=== PATIENT | female | born 1965 ===

== ENCOUNTER 2018-08-08 10:31 | Outpatient (CLI) | payer OTHER | END 2018-08-08 10:34 | disposition home or self-care (01) | LOC: MAMO-SONO 10:31 | DX: N60.11 Diffuse cystic mastopathy of right breast (principal); Z12.31 Encounter for screening mammogram for malignant neoplasm of breast ==

== ENCOUNTER 2018-10-25 14:32 | Outpatient (CLI) | payer OTHER | END 2018-10-25 14:41 | disposition home or self-care (01) | LOC: SONOGRAMA 14:32 | DX: C73 Malignant neoplasm of thyroid gland (principal); E89.0 Postprocedural hypothyroidism ==